=== PATIENT | female | born 1960 | race Two or more races ===

== ENCOUNTER 2017-01-15 16:58 | Emergency (ER) | payer OTHER ==
[~2017-01-15 16:58] MED LIST: H; NORCO 5/325 TAB1 TAB; NORCO 5/325 TAB1 TAB PO
[2017-01-15] MEDS ORDERED: NO HOME MEDICATION XX (17:08)
== END 2017-01-15 18:56 ==
LOC: EDMED 16:58
DX: S39.012A Strain of muscle, fascia and tendon of lower back, initial encounter (principal); V49.50XA Passenger injured in collision with unspecified motor vehicles in traffic accident, initial encounter; Y92.410 Unspecified street and highway as the place of occurrence of the external cause